=== PATIENT | male | born 1955 | race Caucasian/White ===

== ENCOUNTER → 2016-05-20 | Outpatient (CLI) | payer OTHER ==
[~2016-05-20] MED LIST: ALBUTEROL2.5 MG/0.5 INH; CALCIUM 600 +1 EA13 PO; COLCHICINE0.6 M1 PO; DELTASONE10 MG PO; DULCOLAX STOOL100 MG PO; ENBREL50 MG/1 M1 SUB-Q; MAPAP ARTHRITI650 MG PO; MELATONIN10 M2 PO; MIRALAX17 GM PO; MOBIC7.5 MG PO; MOTRIN800 MG PO; MOVANTIK25 MG PO; NORCO 5-325 MG1 TAB PO; PERCOCET 7.5-31 EACH PO; PLAQUENIL200 M1 PO; PRILOSEC20 MG PO; PROVENTIL OR V6.7 GM INH; RESTORIL15 MG PO; TYLENOL PM EX-1 EACH PO; ZOLOFT100 M1 PO
== END | disposition disaster alternative care site (69) ==
LOC: GRAD 05-17 13:00
DX: C34.2 Malignant neoplasm of middle lobe, bronchus or lung (principal); Z98.890 Other specified postprocedural states; M89.9 Disorder of bone, unspecified
CPT/HCPCS: Q9967

== ENCOUNTER → 2016-05-24 | Outpatient (CLI) | payer OTHER | END | disposition disaster alternative care site (69) | LOC: GRAD 10:44 | DX: C34.2 Malignant neoplasm of middle lobe, bronchus or lung (principal); M89.9 Disorder of bone, unspecified; Z90.2 Acquired absence of lung [part of] | CPT/HCPCS: A9503 ==

== ENCOUNTER → 2016-05-31 | Outpatient (CLI) | payer OTHER | END | disposition disaster alternative care site (69) | LOC: GKIC 11:24 | DX: C34.90 Malignant neoplasm of unspecified part of unspecified bronchus or lung (principal); R59.0 Localized enlarged lymph nodes; Z90.2 Acquired absence of lung [part of] | CPT/HCPCS: A9552 ==

== ENCOUNTER 2016-06-03 18:54 | Observation (INO) | payer OTHER ==
[~2016-06-03] VITALS: Ht 190.5 cm; Wt 79.6 kg
--- NOTE | ~2016-06-03 | HP ---
PATIENT'S NAME: ABBI [facility] AGE: 61 Y [address] ROOM: [place] [address] [place] [facility] [place]: 06/03[place]2016 History & Physical DISCHARGE DATE: FAMILY PHYSICIAN: Oskar Perez MD ATTENDING PHYSICIAN: Oskar Perez DATE OF SERVICE: CHIEF COMPLAINT: Constipation and abdominal pain. 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 Began radiation yesterday. Has not had a good bowel movement for approximately 1 week. States that he did 2 Fleet's enemas today, ex-lax and half a bottle of magnesium citrate without relief. The patient presented to the emergency room because of abdominal discomfort. The patient states that he is not currently passing gas. PAST MEDICAL HISTORY: Significant for adenocarcinoma of the right lung, status post removal of adenocarcinoma of the prostate, depression, diverticulosis, and rheumatoid arthritis. CURRENT MEDICATIONS: Include, 1. Percocet 10/325 p.o. p.r.n. 2. Enbrel 50 mg subcu every Friday. 3. Melatonin 10 mg daily. 4. Prednisone 10 mg daily. 5. Sertraline 150 mg daily. 6. Tylenol PM 2 tablets daily. 7. Movantik. 8. Mobic 7.5 mg b.i.d. 9. Calcium with vitamin D 1200 mg daily. 10. Prilosec daily. PAST SURGICAL HISTORY: Includes a colonoscopy in 2013, knee surgery in 1974, and pneumonectomy on June 02, 2015 with left thoracotomy. SOCIAL HISTORY: The patient currently smokes tobacco as well as occasional alcohol use and caffeine. PATIENT'S NAME: ABBI [facility] AGE: 61 Y [address] ROOM: [place] [address] [place] [facility] [place]: 06/03/2016 History & Physical DISCHARGE DATE: FAMILY PHYSICIAN: Oskar Perez MD ATTENDING PHYSICIAN: Oskar Perez FAMILY HISTORY: Significant for diabetes mellitus type 2 as well as cancer. REVIEW OF SYSTEMS: GENERAL: Has had about a 25-pound weight loss since February. Appetite is poor and currently on prednisone for this. SKIN: Denies any itching. HEENT: No migraines, no headache. Has had LASIK surgery to his eyes. CARDIOVASCULAR: No chest pain. No heart palpitations. PULMONARY: Does have shortness of breath with exertion. Mild cough. : Does have a left hernia. NEUROLOGIC: Negative. MUSCULOSKELETAL: Current rib pain. PHYSICAL EXAMINATION: GENERAL: This is an alert, very pleasant male, in no acute distress. HEENT: Pupils are reactive. Face does seem a little bit reddened and like "burning." Mouth moist. NECK: Supple with no lymphadenopathy. HEART: Regular rate and rhythm. LUNGS: Clear. ABDOMEN: Really no bowel sounds heard. Is diffusely tender, but no rebound. : Deferred. EXTREMITIES: Showed no clubbing, cyanosis, or edema. Good pedal pulses. LABORATORY DATA: CBC with a white count of 14.9 and 75% neutrophils, lactate at 1.9, hemoglobin 14.3. Occult blood was negative. CMS was stable with a glucose of 114. Cardiac enzymes were negative. Procalcitonin was negative. CT shows an ileus with no obstruction and increase in small bowel fluid. ASSESSMENT: 1. Ileus. 2. Metastatic adenocarcinoma of the lung. 3. Opioid-induced constipation causing ileus. 4. Rheumatoid arthritis. PLAN: We will admit the patient currently. With the patient's ileus and with all the stuff that he has done at home, I do feel a just bowel rest tonight with IV fluids is in patient's best interest. I did offer him an NG tube and at this time declines. We will let Dr. Perez assess in the morning to determine if he would like to proceed with possible colonoscopy prep or any further care trying to help the constipation at this time. Again, we will keep the patient PATIENT'S NAME: ABBI STAPLE[facility] AGE: 61 Y [address] ROOM: [place] [address] [place] [facility] [place]: 06/03/2016 History & Physical DISCHARGE DATE: FAMILY PHYSICIAN: Oskar Perez MD ATTENDING PHYSICIAN: Oskar Perez n.p.o. tonight. We will just do IV fluids and reassess in the morning. MD ROXANNE CHAPARRO/ramona /[id number] D: [id number] T: [id number] HISTORY & PHYSICAL
--- NOTE | ~2016-06-03 | ER ---
PAT[facility] AGE: 61 Y [address] ROOM: [place] [address] [place] [facility] [place] DATE: 06/03/2016 ER/Outpatient Report DISCHARGE DATE: FAMILY PHYSICIAN: Oskar Perez MD ATTENDING PHYSICIAN: Oskar Perez Time of Arrival: 1856 hours. Time of Evaluation: 1859 hours. CHIEF COMPLAINT: Abdominal pain. HISTORY OF PRESENT ILLNESS: The patient is a 61-year-old male, who presents to the emergency department today with a chief complaint of abdominal pain. The patient does report he has a constipation. His last bowel movement was on 06/01/2016. He reports 10/10 abdominal pain. It is all over. He denies any fevers or chills. No nausea or vomiting. No diarrhea. He reports he has not passed any gas. No urinary frequency, urgency, or painful urination. The patient does have a history of lung cancer with metastasis. He just started radiation today. He has tried 2 fleets enemas, Ex-Lax, half bottle of magnesium citrate. PAST MEDICAL HISTORY: Stage IV adenocarcinoma with metastasis to the ribs, COPD, rheumatoid arthritis. PAST SURGICAL HISTORY: Right thoracotomy, left knee, carpal tunnel. SOCIAL HISTORY: The patient has a history of tobacco use. Denies alcohol or illicit drug use. ALLERGIES: NO KNOWN DRUG ALLERGIES. MEDICATIONS: Please see list. PRIMARY CARE DOCTOR: Dr. Perez. REVIEW OF SYSTEMS: All systems are reviewed by myself and are negative with the exception of those discussed in the HPI and past medical history. [facility] AGE: 61 Y [address] ROOM: [address] [address] [place] [facility] [place]: 06/03/2016 ER/Outpatient Report DISCHARGE DATE: FAMILY PHYSICIAN: Oskar Perez MD ATTENDING PHYSICIAN: Oskar Perez PHYSICAL EXAMINATION: VITAL SIGNS: Weight 80.5 kg, blood pressure 128/89, pulse 135, respiratory rate 18, temperature 98.0, Oxygen saturation 91% on room air. GENERAL: The patient is a 61-year-old male, who appears stated age, in obvious discomfort. HEENT: Normocephalic, atraumatic. Pupils are equal, round, and reactive to light. NECK: Supple. There is no nuchal rigidity. CARDIOVASCULAR: Tachycardic. No murmurs, rubs, or gallops. LUNGS: Clear to auscultation bilaterally. ABDOMEN: Soft with diffuse tenderness to palpation. There is voluntary guarding. No rebound, rigidity, or guarding. Positive bowel sounds. RECTAL: There is no stool in the rectal vault. Hemoccult is negative. SKIN: Warm and dry. There are no rashes or lesions noted. LABORATORY DATA AND X-RAYS: Labs and x-rays are obtained. CBC: White blood cell count 14.9, otherwise normal. Coags are normal. Lactate is 1.9. Occult blood is negative. Procalcitonin is less than 0.05. CMP is unremarkable. LFTs are normal. Cardiac enzymes are normal. CT scan of the abdomen and pelvis is obtained. I have discussed results with the radiologist. It does show an ileus with no obstruction with increased small bowel fluid. Old records are reviewed with a recent PET scan, which shows a recurrent metastasis. IMPRESSION: 1. Ileus with increased small bowel fluid. 2. Leukocytosis. 3. Acute diffuse nonsurgical abdominal pain. 4. History of adenocarcinoma of the lung with metastasis to the rib. 5. Initial visit. EMERGENCY DEPARTMENT COURSE: The patient was brought back to the examination room. Seen and evaluated by myself. IV is established. Laboratory analysis and imaging are obtained as described above. The patient was given multiple doses of Dilaudid IV with improvement in the patient's symptoms, but it does return. The patient continues to have a nonsurgical abdominal exam although he does have significant diffuse tenderness to palpation. He was given a liter of normal saline. I have discussed results with the patient's family, who is at the bedside. I recommend admission to the hospital for further evaluation, treatment, and management. I have contacted Dr. Cinthia Ghotra. She has seen and evaluated the patient here in the emergency department. Please see her dictation. She does agree to accept the patient for further evaluation, treatment, and management. PATIENT'S NAME: ABBI [facility]AP[facility]TON [facility] AGE: 61 Y [address] ROOM: [place] [address] [place] [facility] [place] DATE: 06/03/2016 ER/Outpatient Report DISCHARGE DATE: FAMILY PHYSICIAN: Oskar Perez MD ATTENDING PHYSICIAN: Oskar Perez DISPOSITION: The patient is admitted under the care of Dr. Cinthia Ghotra in stable condition. DO PHOENIX JACOME/gabriell /[id number] d: 06/04/16 0254 t: 06/04/16 0524, OUTPATIENT REPORT
[~2016-06-03 18:54] MED LIST changes: -CALCIUM 600 +1 EA13 PO; -DULCOLAX STOOL100 MG PO; -MIRALAX17 GM PO; -MOBIC7.5 MG PO; -MOVANTIK25 MG PO; -PERCOCET 7.5-31 EACH PO; -PRILOSEC20 MG PO
[2016-06-03 19:15] LABS: BASOPHIL # 0.1 K/uL (0.0-0.2); BASOPHIL % 0.4 %; EOSINOPHIL % 0.2 %; HEMATOCRIT 42.9 % (37.0-53.0); HEMOGLOBIN 14.3 g/dL (12.0-17.0); IMMATURE GRANULOCYTE # 0.1 K/uL (0.0-0.3); IMMATURE GRANULOCYTE % 0.3 %; LYMPHOCYTE # 2.9 K/uL (0.8-4.0); LYMPHOCYTE % 19.7 %; MCH 30.2 pg (27.0-34.0); MCHC 33.3 gm/dL (32.0-36.5); MCV 90.7 fl (83.0-98.0); MONOCYTE # 0.7 K/uL (0.0-1.0); MONOCYTE % 4.4 %; MPV 9.3 fl (9.4-12.4); NEUTROPHIL # (ANC) 11.1 K/uL (1.4-9.0); NRBC % 0 /100WBC (0-0.00); PLATELET COUNT 316 K/uL (150-450); RBC 4.73 M/uL (4.00-6.00); RDW-CV 12.8 % (11.9-14.6); WBC 14.9 K/uL (4.0-11.0)
[2016-06-03 19:23] LABS: INR - (THERAPEUTIC) 0.95 (0.92-1.07); PTT 25 SECONDS (25-32)
[2016-06-03 19:34] LABS: ALBUMIN 3.7 gm/dL (3.5-5.0); ALK PHOS 107 IU/L (33-138); ALT 23 IU/L (12-78); ANION GAP 15.9 (10.0-19.0); AST 13 IU/L (10-40); BLOOD UREA NITROGEN 19 mg/dL (6-24); CALCIUM 9.7 mg/dL (8.5-10.5); CHLORIDE 104 mMol/L (96-110); CO2 23 mMol/L (22-32); CPK 79 IU/L (35-332); CREATININE 0.9 mg/dL (0.6-1.3); ESTIMATED GFR (MDRD EQUATION) > 60; POTASSIUM 3.9 mMol/L (3.7-5.1); SODIUM 139 mMol/L (135-145); TOTAL BILIRUBIN 0.4 mg/dL (0.0-1.5); TOTAL PROTEIN 8.3 g/dL (6.0-8.4)
[2016-06-03] MEDS ORDERED: DELTASONE10 MG PO (23:58)
--- NOTE | 2016-06-04 00:08 | NUR ---
PATIENT WOKE UP WITH ABDOMINAL PAIN. WENT TO WORK AND THEN LATER WENT AND HAD HIS FIRST RADIATION TREATMENT AND THEN WENT BACK HOME. LATER IN THE DAY THE PATIENTS BROUGHT HIM TO THE ER BECAUSE THE ABDOMINAL PAIN BECAME WORSE. CAME TO THE ER AT 0700 ON 06/03/16. PRIOR TO COMING TO THE ER PATIENT DID 2 FLEETS ENEMAS, HALF A BOTTLE OF MAG CITRATE AND A DOSE OF EXLAX WITH NO RESULTS. ADMITTED AT 2340 ON 06/03/16
[2016-06-04] MEDS ORDERED: PRILOSEC20 MG PO (00:10)
[2016-06-04] MEDS ORDERED: MOBIC7.5 MG PO (00:10)
[2016-06-04] MEDS ORDERED: MOVANTIK25 MG PO (00:11)
[2016-06-04] MEDS ORDERED: CALCIUM 600 +1 EA13 PO (00:12)
[2016-06-04] MEDS ORDERED: DULCOLAX STOOL100 MG PO (00:14)
--- NOTE | 2016-06-04 04:36 | NUR ---
Significant Event: Has abdominal pain and has been rating pain a 3/10 after starting Dilaudid ETHNOARCHAEOLOGY PROFESSOR. Bowels are hypoactive. 1 assist with transfers. Monitor urine output. 1 L of oxygen nasal cannula. NPO. Hypertensive with admission, but better now. Follow up:
--- NOTE | 2016-06-04 11:50 | NUR ---
Met with patient at bedside today. Introduced myself and the role of the CM department. Patient lives at home with his . Overall he states that he has been able to care for himself and be independent with all of his ADL's. He is scheduled for radiation this afternoon at 1530. I let him know the cancer center has been notified that he is here in the hospital and his nurse is aware of his 1530 radiation time. Patient states he plans to discharge to home when medically clear and he does not anticipate having any needs. Will continue to follow and offer supports as needed.
--- NOTE | 2016-06-04 14:26 | NUR ---
Patient is alert and oriented, VSS on 1L of O2. Up ad ena but has only been up to the commode so far this shift. Dilaudid CANE WEIGHER HELPER set at demand dose only, 0.2 with a 8 minute lockout. Received a suppository and suprep to help get his bowels moving. Scheduled for radiation at 1530. He did have one BM so far this shift. Has been napping for a short period of time due to not sleeping all night.
--- NOTE | 2016-06-05 05:24 | NUR ---
Significant Event: Patient is A&O x 3. VSS on 1L of O2. Up ad ena to the commode. Finished suprep, had 4 BMs during shift. Dilaudid BEAM PRESS OPERATOR set at 0.2 demand, 8 min lockout. Had 6 attempts and 6 deliveries. Patient has not used since starting PO percocet. Pain well controlled. Percocet last given at 0450. IV to L) Posterior FA with NS @ 150. Patient recieves radiation daily. Follow up: Plan is to D/C home today.
[2016-06-05] MEDS ORDERED: PERCOCET 7.5-31 EACH PO (08:01)
[2016-06-05] MEDS ORDERED: MIRALAX17 GM PO (08:04)
--- NOTE | 2016-06-05 10:36 | NUR ---
D: ORDERS RECEIVED FOR THE PATIENT TO BE DISCHARGED TO HOME TODAY. THE PATIENT WILL BE DISCHARGED FROM HERE TO GO TO RADIATION THIS AFTERNOON. I: DISMISSAL INSTRUCTIONS WERE PREPARED AND REVIEWED WITH THE PATIENT VIRTUALLY. THE FOLLOWING INFORMATION WAS DISCUSSED INCLUDING [employer]ES TEACHING SHEETS PROVIDED: ILEUS, TREATING CONSTIPATION, MIRALAX, PERCOCET, AND PREVENTING DVT. REVIEWED FOLLOW UP APPOINTMENT WITH DR. TOMPKINS IN 1 WEEK AND NEW MEDICATION CHANGES. R: THE PATIENT VERBALIZED UNDERSTANDING OF THE DISMISSAL EDUCATION AT THE TIME OF TEACHING WITH NO FURTHER QUESTIONS. P: THE ABOVE INFORMATION WAS SHARED WITH THE PRIMARY NURSE AND THE CHARGE NURSE THAT THE DISMISSAL EDUCATION WAS COMPLETED. THE PATIENT IS READY FOR DISCHARGE TO HOME BY NURING STAFF.
--- NOTE | 2016-06-05 14:58 | NUR ---
Patient educated on medications, followup appointments, blood clots. Vital signs taken. IV discontinued. Patient was taken by wheelchair with all personal belongings to Cancer [facility] for radiation treatment and will be picked up by family from there to go home.
== END 2016-06-05 13:51 | disposition disaster alternative care site (69) ==
LOC: GMED 18:54 → GMSU 22:12
PROVIDERS: Emergency Medicine; ADMIT Family Medicine
DX: K56.7 Ileus, unspecified (principal); C79.51 Secondary malignant neoplasm of bone; D72.829 Elevated white blood cell count, unspecified; J44.9 Chronic obstructive pulmonary disease, unspecified; F32.9 Major depressive disorder, single episode, unspecified; F11.988 Opioid use, unspecified with other opioid-induced disorder; M06.9 Rheumatoid arthritis, unspecified; K57.90 Diverticulosis of intestine, part unspecified, without perforation or abscess without bleeding; Z79.52 Long term (current) use of systemic steroids; Z85.118 Personal history of other malignant neoplasm of bronchus and lung; Z79.899 Other long term (current) drug therapy; Z98.890 Other specified postprocedural states; F17.210 Nicotine dependence, cigarettes, uncomplicated
CPT/HCPCS: G0378; J1170; J7030; J7512; Q9967

== ENCOUNTER → 2016-10-18 | Outpatient (CLI) | payer OTHER ==
[~2016-10-18] MED LIST changes: +CALCIUM 600 +1 EA13 PO; +DULCOLAX STOOL100 MG PO; +MIRALAX17 GM PO; +MOBIC7.5 MG PO; +MOVANTIK25 MG PO; +PERCOCET 7.5-31 EACH PO; +PRILOSEC20 MG PO
== END | disposition disaster alternative care site (69) ==
LOC: GRAD 15:27
DX: C34.2 Malignant neoplasm of middle lobe, bronchus or lung (principal); C79.51 Secondary malignant neoplasm of bone; R91.8 Other nonspecific abnormal finding of lung field
CPT/HCPCS: Q9967